=== PATIENT | female | born 1950 | race Caucasian/White ===

== ENCOUNTER → 2016-08-01 | Outpatient (CLI) | payer OTHER ==
[~2016-08-01] MED LIST: ALDACTAZIDE PO; ALPRAZOLAM PO; ASPIRIN PO; HUMULIN 70/30 V10 ML; IMDUR PO; LANTUS100 U/ML INJ; LIPITOR PO; LISINOPRIL PO; LOPRESSOR PO; METFORMIN PO; NITROGYLCERIN SUBLINGUAL; PHENERGAN PO; PLAVIX PO; PRILOSEC PO; TRICOR PO; VICODIN PO; ZANTAC PO
[2016-08-01 12:27] LABS: BASOPHIL% 0.5 % (0-2.5); EOSINOPHIL# 0.3 X10e3 (0-0.7); EOSINOPHIL% 4.3 % (0.0-7.0); HEMATOCRIT 35.2 % (35.0-45.0); HEMOGLOBIN 11.1 gm/dL (12.0-16.0); LYMPHOCYTE# 1.7 X10e3 (1.0-3.5); LYMPHOCYTE% 22.7 % (17.0-45.0); MEAN CELL VOLUME 83.4 FL (83-96); MEAN CORPUSCULAR HEMOGLOBIN 26.3 PG (28-34); MEAN CORPUSCULAR HGB CONC 31.6 g/dL (30-36); MONOCYTE# 0.8 X10e3 (0-1.0); MONOCYTE% 10.6 % (3.0-12.0); NEUTROPHIL# 4.6 X10e3 (1.5-7.1); NEUTROPHIL% 61.9 % (40-75); PLATELET COUNT 302 X10e3 (140-420); RED BLOOD COUNT 4.22 X10e (3.90-5.30); RED CELL DISTRIBUTION WIDTH 17.2 % (11.0-15.5); URINE APPEARANCE CLEAR; URINE BILIRUBIN NEG (NEG); URINE BLOOD NEG (NEG); URINE COLOR YELLOW; URINE GLUCOSE 100 MG/DL (NEG); URINE KETONE NEG (NEG); URINE LEUKOCYTE ESTERASE 2+ (NEG); URINE NITRATE NEG (NEG); URINE PROTEIN 2+ (NEG); URINE SPECIFIC GRAVITY 1.016 (1.003-1.035); WHITE BLOOD COUNT 7.5 X10e3 (4.0-10.5)
[2016-08-01 12:29] LABS: URBCS1 AUWI 0-2 /[HPF] (0-2); URINE BACTERIA AUWI 1+ (NEGATIVE); URINE SQUAMOUS EPITHELIAL CELL OCC /[HPF]; UWBCS1 AUWI 25-50 (0-5)
[2016-08-01 12:30] LABS: URINE SOURCE CLEAN CATCH
[2016-08-01 12:38] LABS: DIFF IND NO
[2016-08-01 12:48] LABS: CREATININE,RANDOM URINE 65 mg/dL; TOTAL PROTEIN,RANDOM URINE 110 mg/dl (<10)
[2016-08-01 12:56] LABS: BUN/CREATININE RATIO 18.46; CALCIUM SERUM 8.7 mg/dL (8.4-10.2); CREATININE SERUM 1.3 mg/dL (0.6-1.4); POTASSIUM 4.9 mmol/L (3.5-5.1)
== END | disposition home or self-care (01) ==
LOC: CLAB 11:53
PROVIDERS: Internal Medicine Nephrology
DX: I12.9 Hypertensive chronic kidney disease with stage 1 through stage 4 chronic kidney disease, or unspecified chronic kidney disease (principal); N18.3 Chronic kidney disease, stage 3 (moderate)
CPT/HCPCS: 36415; 80048; 81003; 82570; 84156; 85025

== ENCOUNTER → 2016-10-14 | Outpatient (CLI) | payer OTHER ==
[2016-10-14 10:25] LABS: HEMATOCRIT 35.9 % (35.0-45.0); HEMOGLOBIN 11.4 gm/dL (12.0-16.0); MEAN CELL VOLUME 83.7 FL (83-96); MEAN CORPUSCULAR HEMOGLOBIN 26.7 PG (28-34); MEAN CORPUSCULAR HGB CONC 31.9 g/dL (30-36); MEAN PLATELET VOLUME 7.7 FL (6.5-11.5); RED BLOOD COUNT 4.29 X10e (3.90-5.30); RED CELL DISTRIBUTION WIDTH 16.3 % (11.0-15.5); WHITE BLOOD COUNT 8.7 X10e3 (4.0-10.5)
[2016-10-14 10:52] LABS: CREATININE,RANDOM URINE 117 mg/dL; TOTAL PROTEIN,RANDOM URINE 69 mg/dl (<10)
[2016-10-14 10:54] LABS: BUN/CREATININE RATIO 22.77; CALCIUM SERUM 9.1 mg/dL (8.4-10.2); CREATININE SERUM 1.8 mg/dL (0.6-1.4)
== END | disposition home or self-care (01) ==
LOC: CLAB 10:02
PROVIDERS: Internal Medicine Nephrology
DX: N18.3 Chronic kidney disease, stage 3 (moderate) (principal)
CPT/HCPCS: 36415; 80048; 82570; 84156; 85027